=== PATIENT | female | born 2005 | race African-American/Black ===

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

== ENCOUNTER 2025-03-29 08:32 | Outpatient (AMB) | payer BC, SELFPAY ==
[2025-03-29 08:37] VITALS: BP 122/74; PULSE 67; TEMP 36.8; O2SAT 100; BMI 22.0
--- NOTE | 2025-03-29 08:37 | MHC.AMWC19YF ---
Vital Signs 03/29/25 08:37 Height 5 ft 5.35 in Height percentile 75 Weight 133 lb 6 oz Weight percentile 75 BMI 22.0 BMI percentile 75 Temp 98.3 F Temp Source Oral Pulse 67 Pulse Source Pulse Oximeter BP 122/74 Pulse Oximetry (%) 100 Pediatric Intake Visit Reasons: 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: No Accompanied by: Self / Same As Patient Allergies minocycline Allergy (Unknown, Verified 03/29/25 08:41) Rash Medication List - Last Reconciled 03/29/25 by Em Parry MD cetirizine (Zyrtec) 10 mg PO DAILY norgestimate-ethinyl estradiol 0.25-0.035 mg (Sprintec (28)) 1 tab PO DAILY tretinoin 0.1% appl topical triamcinolone acetonide 0.05% 1 appl topical BID Dental Screening Dental Screen Date: 03/29/25 Did your child have a dental visit in the last 12 months for preventative care, such as check-ups/dental cleaning?: Yes Was there a time your child needed dental care in the last 12 months, but was not received?: No Was dental information given to patient?: Patient has dentist [facility] 18-21 Year Female last WCC: 1 yr ago interval: sees derm - due for visit. only on topical tretinoin now (and OCP) OCP - doing well on it. no side effects. concerns: some recent mood swings and mom has advised her to bring it up b/c dad is bipolar. Sammi does not think it is anything like that - just her mood has been up and down at times. she does not have a therapist but is amenable Nutrition well-balanced, healthy diet with good variety/appropriate servings of fruits/vegetables/proteins/dairy. no milk but loves cheese and yogurt and has both regularly. Exercise no regular activity Exercise frequency: does not exercise Genitourinary Bowel movements: normal Urine output: normal Elimination problems: none Genitourinary: LMP known (03/10) Menstrual flow/appetite: normal (regular cycles/ no dysmenorrhea) Dental Dental care: Reports receives dental care Behavioral Behavior: normal peer interactions (sees friends regularly.) Educational/Employment Work: full-time ([employer]. now at [employer] which she prefers) Living situation: lives at home Sexual sexual history: has never been sexually active Sleep 10p-7a Sleep location: 4-7 years: own bed Sleep problems: No Safety Car safety: well child 16-17 years: seat belt Bicycle/ATV safety: rides a bicycle and wears a helmet Home Safety: safe practices around pool and water, Has poison control number, Water heater temp <120, Working smoke detector in home, Working carbon monoxide detector in home and Fire Extinguisher in home [facility] Substance Abuse Tobacco History Patient Tobacco Use Status: Never used Tobacco Alcohol History Alcohol intake: never Substance Use History Use of substances other than those prescribed or required for medical reasons: No Pediatric Weight Assessment Diet counseling done: Yes Physical activity counseling done: Yes PFSH Medical History Leg length discrepancy Surgical History Status post osteotomy Family History Mother No problems noted. Brother No problems noted. Maternal Grandfather High cholesterol Heart disease Hypertension Social History Household Members: Family Housing: House Alcohol intake: never Patient Tobacco Use Status: Never used Tobacco Second Hand Smoke Exposure: No Use of substances other than those prescribed or required for medical reasons: No Cognitive needs: No Hearing needs: No Vision needs: No CRAFFT Screening Tool PART A: In the PAST 12 MONTHS, did you: Drink any alcohol (more than few sips)? (Do not count sips of alcohol taken during family or uatsdin events.): No Smoke any marijuana or hashish?: No Use anything else to get high? (includes illegal drugs, over the counter/prescription drugs, or things that you sniff/mckeon?): No PART B: If answered YES to ANY above: Have you ever been in a CAR driven by someone (including yourself) who was high or had been using alcohol or drugs?: No CRAFFT Assessment Charge Crafft: CRAFFT 75690 PHQ-9 Over the last 2 weeks, how often have you been bothered by any of the following problems? Depression Screening Interpretation: Negative Depression Screening Done: Yes Source: Developed by Kathy EsquivelW. Misael, Margarito Ingram and colleagues, with an educational kelly from [employer]. Review of Systems Const All systems reviewed & are unremarkable except as noted in HPI and below PE 13-21 years Constitutional General: alert and active Nutritional appearance: well nourished HENMT Ears: Reports external ears normal, TMs normal bilaterally and EAC's normal Teeth: Reports dentition normal Throat: Reports posterior oropharynx normal Eyes Eyes: Reports appearance normal Conjunctivae: Reports conjunctivae normal Pupils: Reports PERRL EOM: Reports EOM intact bilaterally Neck Appearance: Reports normal appearance, no masses and FROM Lymphatic: Reports no lymphadenopathy noted Resp Effort & Inspection: Reports normal respiratory effort Auscultation: Reports clear to auscultation bilaterally Cardio Rate: Reports regular rate Rhythm: Reports regular rhythm Heart sounds: Reports S1 normal and S2 normal (no murmur) GI Palpation: Reports soft, non-tender, no hepatomegaly, no splenomegaly and no masses Auscultation: Reports normal bowel sounds Skin General: Reports no rashes or lesions noted Neuro General: Reports oriented Motor Exam: Reports normal strength and tone (CN 2-12 grossly normal) and normal gait and balance Assessment & Plan Assessment & Plan (1) Encounter for well adult exam without abnormal findings: Code(s): Z00.00 - Encounter for general adult medical examination without abnormal findings Plan: Discussed age-appropriate AG including peer relationships/peer pressure, family relationships, abstinence/safe sex, healthy relationships/sexuality, internet safety, drug/alcohol/cigarette/vaping/marijuana avoidance, sleep, healthy diet, importance of daily physical activity, mood, stress management, conflict management, driving safety, seatbelt use, dental health, future plans, gun safety, (2) Acne: Code(s): L70.9 - Acne, unspecified Category: Medical Qualifiers: Acne type: unspecified acne Qualified Code(s): L70.9 - Acne, unspecified Plan: f/u with derm and continue OCP (3) Encounter for surveillance of contraceptive pills: Code(s): Z30.41 - Encounter for surveillance of contraceptive pills Plan: stable. continue as prescribed. reviewed ACHES. Medications: Refilled norgestimate-ethinyl estradiol 0.25-0.035 mg (Sprintec (28)) 1 tab PO DAILY 84 tabs 3RF Coding Level of Care Code Est Pt Prev Care 12-17y(77539) Diagnoses Encounter for well adult exam without abnormal findings Z00.00 Acne, unspecified acne type L70.9 Acne type: unspecified acne Encounter for surveillance of contraceptive pills Z30.41 Additional Codes CRAFFT Assessment Charge - Crafft: CRAFFT 99339 ([id number]) MANAN-7 Assessment Billing - MANAN-7 Assessment Tool: MANAN-7 Assessment 39830 ([id number]) PHQ Assessment Billing - PHQ Assessment Tool: PHQ Assessment 51332 ([id number]) Thrive Questionnaire Date Thrive assessed: 03/29/25 I am a: Patient What is your living situation today?: I have a steady place to live Within the past 12 months, did the food you bought not last and you didn't have the money to get more?: Never true Within the past 12 months, did you worry whether your food would run out before you got money to buy more?: Never true Do you have trouble paying for medicines?: No Do you have trouble getting transportation to medical appointments?: No Do you have trouble paying your heating and electricity bill?: No Do you have trouble taking care of your child, family member or friend?: No Do you have trouble with day-to-day activities such as bathing, preparing meals, shopping, managing finances, etc.?: No Are you currently unemployed and looking for a job?: No Are you interested in more education?: No Please select the resources that you would like help with: None THRIVE Score: 0 MAANN-7 AMB Questionnaire MANAN-7 Date MANAN - 7 assessed: 03/29/25 Feeling nervous, anxious, or on edge: 0 = Not at all Not being able to stop or control worryin = Not at all Worrying too much about different things: 0 = Not at all Trouble relaxin = Not at all Being so restless that it is hard to sit still: 0 = Not at all Becoming easily annoyed or irritable: 1 = Several days Feeling afraid as if something awful might happen: 0 = Not at all Total MANAN-7 score (0-4 normal; 5-9 mild; 10-14 moderate; 15-21 severe): 1 Source: Developed by Drs. Darek Wade, Kathy Margarito Ibrahim and colleagues, with an educational kelly from [employer]. MANAN-7 Assessment Billing MANAN-7 Assessment Tool: MANAN-7 Assessment 08714 PHQ-9: Modified for Teens Feeling down, depressed, irritable or hopeless?: Not at all Little interest or pleasure in doing things?: Not at all Trouble falling asleep, staying asleep, or sleeping too much?: Not at all Poor appetite, weight loss or overeating?: Not at all Feeling tired, or having little energy?: Not at all Feeling bad about yourself-or feeling that you are a failure, or that you let yourself/your family down?: Several Days Trouble concentrating on things like school work, reading, or watching TV?: Not at all Moving/speaking so slowly that other people have noticed? Or the opposite-being so fidgety that you were moving more than usual?: Not at all Thoughts that you would be better off , or of hurting yourself in some way?: Not at all In the past year have you felt depressed or sad most days, even if you felt okay sometimes?: Yes How difficult have these problems made it for you to do your work, take care of things at home, or get along with other?: Not difficult at all Has there been a time in the past month when you have had serious thoughts about ending your life?: No Have you ever, in your entire life, tried to kill yourself or made a suicide attempt?: No Score: 1 Depression Screening Interpretation: Negative Depression Screening Done: Yes PHQ Assessment Billing PHQ Assessment Tool: PHQ Assessment 15908
--- OUTSIDE RECORDS SUMMARY | 2025-03-29 09:11 | XMS_ITS | Clinical Summary ---
Author Organization [facility] Address [address] [place] [address] Care Team Providers Care Break Off Worker Name Role Phone Em Parry MD Primary Care Provider [phone] Laya Truong RN Unavailable Unavailable Allergies Active Allergy Reactions Criticality Noted Date Comments Pineapple 12/31/2022 Medications doxycycline (Vibra-Tabs) 100 mg tablet 12/03/2022 Activ e norgestimate-et hinyl estradioL (Ortho-Cyclen) 0.25-35 mg-mcg tablet Take 1 tablet by mouth in the morning. 10/24/2023 Active minocycline 100 mg capsule TAKE 1 CAPSULE BY MOUTH TWICE A DAY WITH FOOD AND WATER. WEAR SUNSCREEN. 08/27/2023 Active azelaic acid (Finacea) 15 % gel APPLY TO FACE EVERY MORNING 10/20/2023 Active Active Problems Problem Noted Date Diagnosed Date Difficulty walking 01/03/2023 Acquired leg length discrepancy 08/27/2022 Social History Tobacco Use Types Packs/Day Years Used Date Smoking Tobacco: Never Assessed Tobacco Cessation:Counseling Given: Not Answered Comments No Sex and Gender Information Value Date Recorded Sex Assigned at Female 05/06/2022 8:07 PM EDT Legal Sex Female 8:07 PM EDT Gender Identity Not on file Sexual Orientation Not on file Last Filed Vital Signs Vital Sign Reading Time Taken Comments Blood Pressure - - Pulse - - Temperature - - Respiratory Rate - - Oxygen Saturation - - Inhaled Oxygen Concentration - - Weight 58.3 kg (128 lb 8.5 oz) 11/21/2023 3:21 P M EDT Height 165.3 cm (5' 5.08 ) 11/21/2023 3:21 PM ED T Body Mass Index 21.34 11/21/2023 3:21 PM EDT Body Mass Index Percentile 50.34% 11/21/2023 3:2 1 PM EDT Growth Chart: [facility] (Girls, 2- 20 Years) Plan of Treatment Not on file Insurance [facility] NET PLAN COMM [facility] Care Teams Break Off Worker Relationship Specialty Start Date End Date Em Parry MD [address] [place] [address] [address] [place] [address] PCP - General Pediatrics 08/20/22 Laya Truong, mechanic assistantConcrete Rod Buster 10/10/22
== END 2025-03-29 09:10 | disposition home or self-care (01) ==
LOC: HO.HMCP 08:33
PROVIDERS: PCP Pediatrics; Visit Provider Pediatrics
DX: Z00.00 Encounter for general adult medical examination without abnormal findings (principal); L70.9 Acne, unspecified; Z30.41 Encounter for surveillance of contraceptive pills

== ENCOUNTER → 2025-03-29 08:32 | Outpatient (BNVA) | payer BC, SELFPAY | PROVIDERS: PCP Pediatrics; Visit Provider Pediatrics | DX: Z00.00 Encounter for general adult medical examination without abnormal findings (principal); L70.9 Acne, unspecified; Z13.31 Encounter for screening for depression; Z13.39 Encounter for screening examination for other mental health and behavioral disorders | CPT/HCPCS: 96127; 96160 ==